=== PATIENT | female | born 1995 ===

== ENCOUNTER 2018-05-24 19:03 | Emergency (ER) | payer OTHER ==
[2018-05-24 19:27] VITALS: BP 141/81
[2018-05-24] MEDS ORDERED: predniSONE TAB* 20 MG PO ONE (19:44)
--- NOTE | 2018-05-24 19:47 | UC ---
Skin Complaint HPI - HPI Summary HPI Summary: 22-year-old woman comes in with a chief complaint of a rash. The rash started 4 days ago on her chest while she was wearing a life vest while kayaking in [place]. The rashes greatly spread to her upper shoulders her neck or arms or legs. She was seen at [facility] 2 days ago and started on Benadryl. The Benadryl does not seem to be helping much. The rash is very itchy. Patient feels well otherwise no sore throat no fevers. - History of Current Complaint Chief Complaint: UCSkin Time Seen by Provider: 05/24/18 19:35 Stated Complaint: RASH Hx Last Menstrual Period: 05/24/2018 Pain Intensity: 0 - Allergy/Home Medications Allergies/Adverse Reactions: Allergies Allergy/AdvReac Type Severity Reaction Status Date / Time No Known Allergies Allergy Verified 05/24/18 19:48 PMH/Surg Hx/FS Hx/Imm Hx Previously Healthy: Yes - Surgical History Surgical History: None - Family History Known Family History: Positive: Non-Contributory - Social History Alcohol Use: None Substance Use Type: None Smoking Status (MU): Never Smoked Tobacco Review of Systems All Other Systems Reviewed And Are Negative: Yes Constitutional: Positive: Negative Skin: Positive: Rash Eyes: Positive: Negative ENT: Positive: Negative Respiratory: Positive: Negative Cardiovascular: Positive: Negative Gastrointestinal: Positive: Negative Motor: Positive: Negative Neurovascular: Positive: Negative Musculoskeletal: Positive: Negative Neurological: Positive: Negative Psychological: Positive: Negative Is Patient Immunocompromised?: No Physical Exam Triage Information Reviewed: Yes Appearance: Well-Appearing, No Pain Distress, Well-Nourished Vital Signs: Initial Vital Signs Temp 99.2 F 05/24/18 19:22 Pulse 111 05/24/18 19:22 Resp 18 05/24/18 19:22 BP 141/81 05/24/18 19:22 Pulse Ox 96 05/24/18 19:22 Vital Signs Reviewed: Yes Eye Exam: Normal Eyes: Positive: Conjunctiva Clear ENT: Positive: Pharynx normal, TMs normal Neck exam: Normal Neck: Positive: Supple Respiratory: Positive: Lungs clear, Normal breath sounds, No respiratory distress Cardiovascular: Positive: RRR Musculoskeletal Exam: Normal Musculoskeletal: Positive: Strength Intact, ROM Intact Neurological: Positive: Alert, Muscle Tone Normal Psychological Exam: Normal Psychological: Positive: Age Appropriate Behavior Skin: Positive: Other - Diffuse erythematous rash on chest back upper arms. The rash is blanching. Small patches approximately a centimeter in diameter was slightly raised areas. No pustules. No drainage. Course/Dx - Diagnoses Provider Diagnosis: Rash Discharge - Sign-Out/Discharge Documenting (check all that apply): Patient Departure All imaging exams completed and their final reports reviewed: No Studies - Discharge Plan Condition: Stable Disposition: HOME Prescriptions: predniSONE TAB* [Deltasone 20 MG TAB*] 20 mg PO BID PRN #8 tab PRN Reason: Rash Patient Education Materials: Acute Rash (ED) Referrals: [facility] [Provider Group] Additional Instructions: FOLLOW UP WITH YOUR DOCTOR IF NOT COMPLETELY IMPROVED. GET REEVALUATED SOONER FOR ANY WORSENING OF YOUR CONDITION OR ANY QUESTIONS OR CONCERNS. - Billing Disposition and Condition Condition: STABLE Disposition: Home
== END 2018-05-24 19:55 | disposition home or self-care (01) ==
LOC: UCEAST 19:03
DX: R21 Rash and other nonspecific skin eruption (principal)
CPT/HCPCS: 99202; G0463; J7512